=== PATIENT | female | born 1960 | race Caucasian/White ===

== ENCOUNTER 2021-09-09 17:31 | Emergency (ER) | payer OTHER ==
[~2021-09-09] VITALS: Ht 167.6 cm; Wt 74.0 kg
[2021-09-09] MEDS ORDERED: AMLO25TA PO (17:46)
[2021-09-09] MEDS ORDERED: LEVO50CA PO (17:46)
[2021-09-09 19:46] LABS: HEMATOCRIT 44.1 % (36.0-47.0); HEMOGLOBIN 14.9 g/dl (12.0-15.5); MEAN CORPUSCULAR HEMOGLOBIN 30.1 pg (27.0-33.0); MEAN CORPUSCULAR HGB CONC 33.8 g/dl (32.0-36.5); MEAN CORPUSCULAR VOLUME 89.1 fl (80.0-96.0); PLATELET COUNT, AUTOMATED 203 10^3/uL (150-450); RED BLOOD COUNT 4.95 10^6/uL (4.00-5.40); WHITE BLOOD COUNT 9.1 10^3/uL (4.0-10.0)
[2021-09-09 19:56] LABS: BLOOD UREA NITROGEN 7 MG/DL (7-18); CARBON DIOXIDE LEVEL 31 MEQ/L (21-32); CHLORIDE LEVEL 100 MEQ/L (98-107); CREATININE FOR GFR 0.66 MG/DL (0.55-1.30); GLOMERULAR FILTRATION RATE > 60.0 (>45); GLUCOSE, FASTING 105 MG/DL (70-100); POTASSIUM SERUM 3.4 MEQ/L (3.5-5.1); SODIUM LEVEL 136 MEQ/L (136-145)
[2021-09-09] MEDS ORDERED: KETOROLAC 30 MG/ML 1ML VIAL IV ONE (20:35)
[2021-09-09] MEDS ORDERED: NS 1,000 ML IV ONE (20:35)
[2021-09-09] MEDS ORDERED: ACETAMINOPHEN 500 MG TAB PO ONE (20:35)
[2021-09-09 20:56] LABS: ALBUMIN 4.1 GM/DL (3.2-5.2); ALT/SGPT 46 U/L (12-78); BILIRUBIN,DIRECT 0.2 MG/DL (0.0-0.2); BILIRUBIN,TOTAL 0.6 MG/DL (0.2-1.0); C REACTIVE PROTEIN QUANTITATIV 4.96 MG/DL (0.00-0.30); TOTAL PROTEIN 7.5 GM/DL (6.4-8.2)
[2021-09-09 20:59] LABS: ERYTHROCYTE SEDIMENTATION RATE 9 mm/hr (0-30)
[2021-09-09] MEDS ORDERED: diphenhydrAMINE 50MG/ML VIAL (J1200) IV STA (22:29)
[2021-09-09] MEDS ORDERED: CEPH500C PO (23:09)
[2021-09-09] MEDS ORDERED: DOXY-443 PO (23:09)
[2021-09-09] MEDS ORDERED: DOXYCYCLINE HYCLATE 100MG TABLET PO ONE (23:10)
[2021-09-09] MEDS ORDERED: CEPHALEXIN 500 MG CAP PO ONE (23:10)
[2021-09-09 23:17] VITALS: BP 111/56
== END 2021-09-09 23:20 | disposition home or self-care (01) ==
LOC: M ED 17:31
DX: L03.116 Cellulitis of left lower limb (principal); L02.416 Cutaneous abscess of left lower limb; W57.XXXA Bitten or stung by nonvenomous insect and other nonvenomous arthropods, initial encounter; I10 Essential (primary) hypertension; Z88.2 Allergy status to sulfonamides; Z88.1 Allergy status to other antibiotic agents; Z79.899 Other long term (current) drug therapy; Y99.9 Unspecified external cause status
CPT/HCPCS: 76882; 80048; 80076; 83605; 85027; 85652; 86140; 86618; 87040; 93005; 96361; 96374; 96375; 99284; J1200; J1885